=== PATIENT | male | born 1960 | race American Indian/Alaskan Native ===

== ENCOUNTER 2018-11-04 14:09 | Emergency (ER) | payer OTHER ==
--- NOTE | 2018-11-04 14:34 | Event Note ---
ED Screening Note Date of service: 11/04/18 Time: 14:32 ED Screening Note: This is a 58 y.o. M. that presents to the ER with a laceration to left 3rd & 4th fingers. This initial assessment/diagnostic orders/clinical plan/treatment(s) is/are subject to change based on patients health status, clinical progression and re- assessment by fellow clinical providers in the ED. Further treatment and workup at subsequent clinical providers discretion. Patient/guardian urged not to elope from the ED as their condition may be serious if not clinically assessed and managed. Initial orders include: XR of fingers
--- NOTE | 2018-11-04 15:27 | XRay Report ---
LEFT FINGERS, 3 VIEWS INDICATION / CLINICAL INFORMATION: cut finger with lawnmower. COMPARISON: None available. FINDINGS: Marked soft tissue deformity of the distal long finger. There is a comminuted fracture of the distal phalanx of the long finger. No radiopaque soft tissue foreign bodies. Signer Name: Dada Guerrero MD Signed: 11/04/2018 3:22 PM Workstation Name: [id number]
[2018-11-04] MEDS ORDERED: IBUPROFEN PO ONE (16:16)
[2018-11-04] MEDS ORDERED: MORPHINE IM ONE (16:16)
--- NOTE | 2018-11-04 16:20 | Emergency Department Report ---
ED Laceration HPI - HPI Chief Complaint: Extremity Injury, Upper Stated Complaint: LACERATION TO L FINGER Time Seen by Provider: 11/04/18 14:32 Location: Upper Extremity Severity: moderate Laceration Symptoms: Yes Pain, No Foreign Body Sensation, No Numbness, No Weakness Other History: This is a 58-year-old male with no prominent medical history presents to ED complaining of pain and bleeding to his left fingers. Patient states he accidentally stuck his hand underneath his lawnmower earlier today. Patient states he is on unsure of his last tetanus was 2. ED Review of Systems ROS: Stated complaint: LACERATION TO L FINGER Other details as noted in HPI Comment: All other systems reviewed and negative ED Past Medical Hx - Past Medical History Hx Hypertension: Yes Additional medical history: Peptic ulcer disease. Gallbladder sludge just diagnosed recently. Rectal ulcer, syncope - Social History Smoking Status: Never Smoker Substance Use Type: None - Medications Home Medications: Home Medications Medication Instructions Recorded Confirmed Last Taken Type hydroCHLOROthiazide [HCTZ] 25 mg PO QDAY 02/19/15 03/08/15 02/18/15 History Loperamide [Imodium] 2 mg PO Q4H PRN 03/08/15 03/08/15 Unknown History raNITIdine HCl [Zantac 300 MG TAB] 300 mg PO QPM 03/08/15 03/08/15 Unknown Hist ory valACYclovir [Valtrex] 500 mg PO BID 03/08/15 03/08/15 Unknown History Clindamycin [Clindamycin CAP] 300 mg PO Q8H #21 cap 11/04/18 Unknown Rx HYDROcodone/APAP 5-325 [[place] 1 each PO Q6HR PRN #12 tablet 11/04/18 Unknown Rx 5/325] Ibuprofen [Motrin] 800 mg PO Q8HR #30 tablet 11/04/18 Unknown Rx Laceration Physical Exam - Exam General: Vital signs noted. No distress. Alert and acting appropriately. Laceration Location: Upper Extremity Laceration Exam: Yes Exposed Tendon, Vessel, or Nerve, Yes Normal Distal CMS, No Foreign Body, No Tendon Injury ED Course Vital Signs 11/04/18 14:32 Temperature 97.9 F Pulse Rate 79 Respiratory 19 Rate Blood Pressure 150/107 [Left] O2 Sat by Pulse 99 Oximetry ED Medical Decision Making - Medical Decision Making 58-year-old male presents with fracture of the middle finger to the left hand and laceration with nail avulsion The #cm laceration wound was prepped and draped in sterile fashion. Anesthesia was achieved with 4mL of 1% lidocaine. The wound was irrigated with 200cc NS and explored. There were no foreign bodies The wound was reapproximated in 1 layer with # sutures suing with three 4-0 monofilament sutures in the dermis with interrupted sutures percutaneously. There was excellent reapproximation of the wound edges. The patient tolerated the procedure without complication Discussed the patient to return in 7 days for wound check and to follow-up with orthopedist Dr. Berrios. Referrals given. Patient received pain medication and tenderness posterior in the ED Critical care attestation.: If time is entered above; I have spent that time in minutes in the direct care of this critically ill patient, excluding procedure time. ED Disposition Clinical Impression: Finger laceration, Open fracture of tuft of distal phalanx of finger Disposition: DC- TO HOME OR SELFCARE Is pt being admited?: No Does the pt Need Aspirin: No Condition: Stable Instructions: Finger Fracture (ED), Suture Care (ED), Finger Laceration (ED) Additional Instructions: Make sure to follow up with the primary care physician as discussed. Take all your medications as you've been prescribed. If you have any worsening symptoms or develop new symptoms please return to ED immediately. Prescriptions: Clindamycin [Clindamycin CAP] 300 mg PO Q8H #21 cap Ibuprofen [Motrin] 800 mg PO Q8HR #30 tablet HYDROcodone/APAP 5-325 [[place] 5/325] 1 each PO Q6HR PRN #12 tablet PRN Reason: Pain Referrals: TOMMIE HERNANDEZ MD [Primary Care Provider] - 3-5 Days GRAY BERRIOS MD [Staff Physician] - 3-5 Days Forms: Accompanied Note, Work/School Release Form(ED) Time of Disposition: 18:54
[2018-11-04] MEDS ORDERED: NACL 0.9% 500 ML IR ONE (17:40)
[2018-11-04] MEDS ORDERED: MORPHINE IV ONE (17:43)
[2018-11-04] MEDS ORDERED: MORPHINE ONE (17:44)
[2018-11-04] MEDS ORDERED: NACL 0.9% 500 ML 500 ML ONE (17:48)
[2018-11-04] MEDS ORDERED: NACL 0.9% 500 ML 500 ML IV ONE (17:53)
[2018-11-04] MEDS ORDERED: SILVER NITRATE TP ONE ×2 (18:04→18:05)
[2018-11-04] MEDS ORDERED: BOOSTRIX IM ONE (18:26)
[2018-11-04 19:23] VITALS: BP 157/86
== END 2018-11-04 19:23 | disposition home or self-care (01) ==
LOC: ED 14:09
DX: S62.633A Displaced fracture of distal phalanx of left middle finger, initial encounter for closed fracture (principal); S61.213A Laceration without foreign body of left middle finger without damage to nail, initial encounter; I10 Essential (primary) hypertension; Z79.899 Other long term (current) drug therapy; Z91.018 Allergy to other foods; W28.XXXA Contact with powered lawn mower, initial encounter; Y93.89 Activity, other specified; Y92.89 Other specified places as the place of occurrence of the external cause; Y99.8 Other external cause status
CPT/HCPCS: 12001; 73140; 90471; 90715; 96372; 96374; 99283; J2270; J7040; 96361

== ENCOUNTER 2018-11-12 11:35 | Emergency (ER) | payer OTHER ==
--- NOTE | 2018-11-12 12:04 | Event Note ---
ED Screening Note Date of service: 11/12/18 Time: 12:03 ED Screening Note: This is a 58 y.o. M. that presents to the ER for evaluation of sutures and removal. Sutures placed 11/04/2018 left 3rd and 4th fingers. This initial assessment/diagnostic orders/clinical plan/treatment(s) is/are subject to change based on patients health status, clinical progression and re- assessment by fellow clinical providers in the ED. Further treatment and workup at subsequent clinical providers discretion. Patient/guardian urged not to elope from the ED as their condition may be serious if not clinically assessed and managed. Initial orders include: ACC for further evaluation.
[2018-11-12 12:05] VITALS: BP 171/96
--- NOTE | 2018-11-12 13:31 | Emergency Department Report ---
HPI - General Chief Complaint: Laceration/Recheck/Suture Time Seen by Provider: 11/12/18 12:03 - HPI HPI: 58-year-old male presents to the emergency Department for a wound evaluation and possible suture removal from his right middle and ring fingers. He was seen here on 11/04/18 after he accidentally put his hand under a lawnmower causing lacerations and a comminuted distal middle right finger fracture. The fingers were sutured and the patient was placed on antibiotics. He was referred to orthopedist but the patient says that he has instead followed up with his family physician. He still has some discomfort to the end of the fi ngers. He denies any fever. He has been compliant with his medication. ED Past Medical Hx - Past Medical History Previous Medical History?: Yes Hx Hypertension: Yes Additional medical history: Peptic ulcer disease. Gallbladder sludge just diagnosed recently. Rectal ulcer, syncope - Surgical History Past Surgical History?: No - Social History Smoking Status: Never Smoker Substance Use Type: None - Medications Home Medications: Home Medications Medication Instructions Recorded Confirmed Last Taken Type hydroCHLOROthiazide [HCTZ] 25 mg PO QDAY 02/19/15 03/08/15 02/18/15 History Loperamide [Imodium] 2 mg PO Q4H PRN 03/08/15 03/08/15 Unknown History raNITIdine HCl [Zantac 300 MG TAB] 300 mg PO QPM 03/08/15 03/08/15 Unknown History valACYclovir [Valtrex] 500 mg PO BID 03/08/15 03/08/15 Unknown History Clindamycin [Clindamycin CAP] 300 mg PO Q8H #21 cap 11/04/18 Unknown Rx Ibuprofen [Motrin] 800 mg PO Q8HR #30 tablet 11/04/18 Unknown Rx HYDROcodone/APAP 5-325 [[place] 1 each PO Q6HR PRN #10 tablet 11/12/18 Unknown Rx 5-325 mg TAB] ED Review of Systems ROS: Stated complaint: SUTURE REMOVAL Other details as noted in HPI Comment: All other systems reviewed and negative Constitutional: denies: chills, fever Musculoskeletal: arthralgia Skin: other (lacerations, sutures). denies: rash Physical Exam - Physical Exam Vital Signs: Vital Signs 11/12/18 12:03 Temperature 98.7 F Pulse Rate 60 Respiratory 18 Rate Blood Pressure 171/96 [Right] O2 Sat by Pulse 99 Oximetry Physical Exam: GENERAL: The patient is well-developed well-nourished. HENT: Normocephalic. Atraumatic. Patient has moist mucous membranes. EYES: Extraocular motions are intact. NECK: Supple. Trachea is midline. ABDOMEN: There is no abdominal distention. SKIN: Patient has 2 wounds to the distal third and fourth fingers of his right hand. 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 There are multiple simple interrupted and running sutures seen in place to both fingers. The ring finger has an eschar over what previously was the finger pad. There is a little bit of drainage coming from the distal fingertips. NEURO: The patient is awake, alert, and oriented. The patient is cooperative. The patient has no focal neurologic deficits. The patient has normal speech. MUSCULOSKELETAL: There is some tenderness to palpation to the distal third and fourth fingers of the right hand. Radial pulse +2 over 4. ED Course Vital Signs 11/12/18 12:03 Temperature 98.7 F Pulse Rate 60 Respiratory 18 Rate Blood Pressure 171/96 [Right] O2 Sat by Pulse 99 Oximetry ED Medical Decision Making - Medical Decision Making The patient came in initially for possible suture removal. I removed 1 suture from the middle finger and the patient's laceration, and what appears to be a finger flap, started to bleed and open slightly. Therefore no further sutures will be removed from this right middle finger. I was able to remove all of the sutures except for one from the distal right fourth finger. There was no dehiscence, bleeding but I am unable to remove the last suture on that finger without breaking down the eschar. Patient otherwise appears neurovascularly intact. There may be some slight signs of infection to the distal fingers as there is some oozing or drainage but there is no significant swelling or erythema. The patient does not have any fever. He was recently started on a new antibiotic by his primary care physician, 2 days ago, and will continue to take this. He has been given referrals for both orthopedist and the local wound clinic. I expressed how important it is to follow-up with both of these specialties and to return to the emergency Department with any worsening of his symptoms or any acute distress. Critical Care Time: No Critical care attestation.: If time is entered above; I have spent that time in minutes in the direct care of this critically ill patient, excluding procedure time. ED Disposition Clinical Impression: Visit for wound check, Visit for suture removal Disposition: TO HOME OR SELFCARE Is pt being admited?: No Condition: Stable Instructions: Suture Care (ED), Suture Removal (ED), Acute Wound Care (ED) Additional Instructions: While we did remove some of the sutures from your ring finger, there still is [address] that [address] in place, and we did not remove the sutures from your right middle finger. It appears that you will need a few more days of wound healing, before suture removal, to avoid separation of the wound/laceration. I have once again given you a referral for Dr. Oneal, a local orthopedist. I have also given you a referral for the local wound care clinic. Continue with your antibiotics. Return to the emergency Department with any worsening of your symptoms, development of fever, increased pain or swelling, discharge of pus, or any other signs or symptoms of infection or with any acute distress. You have been prescribed a medication that is sedating and therefore should not be taken prior to driving, working, and responsible for children and in no way should be mixed with alcohol of any quantity. Prescriptions: HYDROcodone/APAP 5-325 [[place] 5-325 mg TAB] 1 each PO Q6HR PRN #10 tablet PRN Reason: Pain Referrals: GRAY ONEAL MD [Staff Physician] - [facility] [Outside] - [facility] Time of Disposition: 13:31
== END 2018-11-12 14:03 | disposition home or self-care (01) ==
LOC: ED 11:35
DX: S61.212D Laceration without foreign body of right middle finger without damage to nail, subsequent encounter (principal); I10 Essential (primary) hypertension; R55 Syncope and collapse; Z91.018 Allergy to other foods; Z98.890 Other specified postprocedural states; Z79.1 Long term (current) use of non-steroidal anti-inflammatories (NSAID); Z79.899 Other long term (current) drug therapy; W26.8XXD Contact with other sharp object(s), not elsewhere classified, subsequent encounter

== ENCOUNTER 2018-11-19 12:28 | Outpatient (CLI) | payer OTHER ==
[2018-11-19] MEDS ORDERED: XYLOCAINE TOPICAL 4% TP ONE (12:53)
[2018-11-19] MEDS ORDERED: XYLOCAINE 1% 20 mL INFILTRATI ONE (13:20)
[2018-11-19] MEDS ORDERED: SILVER NITRATE TP ONE (13:38)
== END 2018-11-19 12:29 | disposition home or self-care (01) ==
LOC: WOUND 12:28
PROVIDERS: ATTEND Surgery
DX: S61.205A Unspecified open wound of left ring finger without damage to nail, initial encounter (principal); I10 Essential (primary) hypertension; X58.XXXA Exposure to other specified factors, initial encounter; Y93.89 Activity, other specified; Y92.89 Other specified places as the place of occurrence of the external cause; Y99.8 Other external cause status
CPT/HCPCS: 11042; 11045; G0463; 99204

== ENCOUNTER 2018-12-02 09:42 | Outpatient (CLI) | payer OTHER | END 2018-12-02 09:43 | disposition home or self-care (01) | LOC: WOUND 09:42 | PROVIDERS: ATTEND Surgery | DX: S61.205D Unspecified open wound of left ring finger without damage to nail, subsequent encounter (principal); S61.203D Unspecified open wound of left middle finger without damage to nail, subsequent encounter; I10 Essential (primary) hypertension; X58.XXXD Exposure to other specified factors, subsequent encounter | CPT/HCPCS: 99213; G0463 ==